=== PATIENT | female | born 1980 | race Hispanic/Latino ===

== ENCOUNTER 2019-10-09 06:19 | Emergency (ER) | payer SELFPAY ==
[~2019-10-09] VITALS: Ht 180.3 cm; Wt 113.0 kg
[2019-10-09] MEDS ORDERED: CLEOCIN300 MG PO (06:39)
[2019-10-09] MEDS ORDERED: LORTAB 1010 MG PO (06:39)
[2019-10-09 07:34] VITALS: BP 143/79
== END 2019-10-09 07:33 | disposition home or self-care (01) | DRG 158 ==
LOC: ED 06:19
DX: K04.7 Periapical abscess without sinus (principal); M84.48XA Pathological fracture, other site, initial encounter for fracture

== ENCOUNTER 2021-10-25 05:59 | Emergency (ER) | payer SELFPAY ==
[~2021-10-25] VITALS: Ht 180.3 cm; Wt 110.5 kg
[~2021-10-25 05:59] MED LIST: CLEOCIN300 MG PO; LORTAB 1010 MG PO
[2021-10-25] MEDS ORDERED: LOTRIMIN AF JOCK1 % TOP (06:21)
[2021-10-25] MEDS ORDERED: DIFLUCAN150 MG PO (06:21)
[2021-10-25 06:24] VITALS: BP 177/118
== END 2021-10-25 06:32 | disposition home or self-care (01) | DRG 607 ==
LOC: ED 05:59
DX: B35.3 Tinea pedis (principal)